=== PATIENT | female | born 1970 | race Hispanic/Latino ===

== ENCOUNTER 2018-03-10 11:47 | Observation (INO) | payer BC ==
[2018-03-10 11:55] VITALS: BMI 38.8
[2018-03-10 12:48] LABS: BASO # 0.02 K/mm3 (0.0-2.0); BASO % 0.3 % (0.0-3.0); EOS # 0.1 (0.0-0.7); EOS % 1.7 % (1.5-5.0); GRAN # 5.2 (1.4-6.5); GRAN % 69.2 % (50.0-68.0); LYMPH # 1.6 (1.2-3.4); LYMPH % 21.6 % (22.0-35.0); MEAN CELL VOLUME 63.7 fl (80.0-105.0); MEAN CORPUSCULAR HEMOGLOBIN 17.9 pg (25.0-35.0); MEAN CORPUSCULAR HGB CONC 28.1 g/dl (31.0-37.0); MEAN PLATELET VOLUME 9.8 fl (7.0-11.0); MONO # 0.5 (0.1-0.6); MONO % 7.2 % (1.0-6.0); RBC 3.58 10^6/uL (3.5-6.1); RED CELL DISTRIBUTION WIDTH 17.6 % (11.5-14.5); WHITE BLOOD COUNT 7.5 10^3/uL (4.5-11.0)
[2018-03-10 12:50] LABS: ALB/GLOB RATIO 1.4 (1.1-1.8); ALBUMIN 4.1 g/dL (3.0-4.8); ALT/SGPT 21 U/L (7-56); AST/SGOT 17 U/L (14-36); BLOOD UREA NITROGEN 9 mg/dL (7-21); CALCIUM 9.2 mg/dL (8.4-10.5); GFR NON-AFRICAN AMERICAN > 60
[2018-03-10 12:54] LABS: IRON 10 ug/dL (45-180)
[2018-03-10 12:56] LABS: HEMOGLOBIN 6.4 g/dL (12.0-16.0)
[2018-03-10 12:58] LABS: INR 1.11; PROTHROMBIN TIME 12.5 SECONDS (9.4-12.5)
[2018-03-10 13:03] LABS: % IRON SATURATION 2 % (20-55); TOTAL IRON BINDING CAPACITY 477 ug/dL (265-497)
--- NOTE | 2018-03-10 14:52 | CP.PCM.HP ---
<Adelia Domingo - Last Filed: 03/10/18 14:54> History of Present Illness - History of Present Illness History of Present Illness: 47yo female PMHx uterine fibroids, LYLE, low vitamin D was sent in to ER from Dr. Arita office for low H&H. Patient reports she was receiving her IV venofer transfusion today and was found to have a Hgb ~6 and was told to go to the ER. Patient had a similar episode in January 2018 where she was admitted overnight at [facility] as she was found to have a Hgb of ~5. Patient was transfused 2U PRBC during prior hospitalization. She had noticed she was starting to have heavy menstrual bleeding since late Dec 2017 when she would be bleeding continuously and would go through multiple tampons and pads throughout the day. Since then she has been started on Provera by her [facility] and although she continues to have menstrual bleeding she changes her pads 3-4 times/day. Over the past week patient was noticing she was lightheaded and having increasing SOB on exertion with palpitations. She denied any chest pain. On complete ROS patient denied fever, chills, headaches, cough, dyspnea at rest, abdominal pain, nausea, vomiting, diarrhea, constipation, blood in her stool, melena, hematuria, dysuria, numbness/tingling in her extremities, focal weakness. She did admit to generalized weakness and tiredness. Patient denied any recent sick contacts. PMHx: uterine fibroids, LYLE, low vitamin D POBGynHx: ; patient LMP early December and she has been having menstrual bleeding since; periods used to be every 28 days; patient was last on OCPs as a teenager and has never had an IUD. Last pap smear was a couple months ago and has never been abnormal. PSurgHx: tubal ligation 13 years ago; 2 c-sections [13 years ago and 16 years ago] PHospitalization: [facility] on Feb 022017 for symptomatic anemia wit Hgb ~5 Meds: Weekly vitamin D, Provera, Iron infusions ALL: NKDA FamHx: noncontributory PMD: [facility]c: Juan J [facility]: [employer] [last seen February 22 2018] Present on Admission - Present on Admission Any Indicators Present on Admission: No Review of Systems - Review of Systems All systems: reviewed and no additional remarkable complaints except Review of Systems: as per HPI Past Patient History - Infectious Disease Hx of Infectious Diseases: None - Past Social History Smoking Status: Unknown If Ever Smoked - CARDIAC Hx Cardiac Disorders: No - PULMONARY Hx Respiratory Disorders: No - PSYCHIATRIC Hx Substance Use: No - ANESTHESIA Hx Anesthesia: No Meds Allergies/Adverse Reactions: Allergies Allergy/AdvReac Type Severity Reaction Status Date / Time No Known Allergies Allergy Verified 03/11/18 14:13 Physical Exam - Constitutional Appears: Non-toxic, No Acute Distress - Head Exam Head Exam: ATRAUMATIC, NORMAL INSPECTION, NORMOCEPHALIC - Eye Exam Eye Exam: EOMI, Normal appearance, PERRL. absent: Conjunctival injection, Scler al icterus - ENT Exam ENT Exam: Mucous Membranes Moist - Neck Exam Neck exam: Positive for: Full Rom, Normal Inspection - Respiratory Exam Respiratory Exam: Clear to Auscultation Bilateral, NORMAL BREATHING PATTERN. absent: Accessory Muscle Use, Rales, Rhonchi, Wheezes, Respiratory Distress - Cardiovascular Exam Cardiovascular Exam: Tachycardia, +S1, +S2 - GI/Abdominal Exam GI & Abdominal Exam: Normal Bowel Sounds, Soft. absent: Firm, Guarding, Rigid, Tenderness - Extremities Exam Extremities exam: Positive for: normal inspection, pedal pulses present. Nega tive for: calf tenderness, pedal edema - Back Exam Back exam: NORMAL INSPECTION. absent: rash noted - Neurological Exam Neurological exam: Alert, CN II-XII Intact, Normal Gait, Oriented x3 - Psychiatric Exam Psychiatric exam: Normal Affect, Normal Mood - Skin Skin Exam: Dry, Intact, Normal Color, Warm Results - Vital Signs Recent Vital Signs: Last Vital Signs Temp 98.2 F 03/10/18 11:54 Pulse 94 H 03/10/18 14:00 Resp 18 03/10/18 14:00 BP 145/75 03/10/18 14:00 Pulse Ox 100 03/10/18 14:00 - Labs Result Diagrams: 03/10/18 12:23 03/10/18 12:23 Labs: Laboratory Results - last 24 hr 03/10/18 03/10/18 03/10/18 12:23 12:23 12:23 WBC 7.5 RBC 3.58 Hgb 6.4 L* Hct 22.8 L MCV 63.7 L MCH 17.9 L MCHC 28.1 L RDW 17.6 H Plt Count 310 MPV 9.8 Gran % 69.2 H Lymph % (Auto) 21.6 L Louisa % (Auto) 7.2 H Eos % (Auto) 1.7 Baso % (Auto) 0.3 Gran # 5.20 Lymph # (Auto) 1.6 Louisa # (Auto) 0.5 Eos # (Auto) 0.1 Baso # (Auto) 0.02 PT 12.5 INR 1.11 APTT 31.0 Sodium 139 Potassium 4.2 Chloride 107 Carbon Dioxide 24 Anion Gap 12 BUN 9 Creatinine 0.7 Est GFR ( Amer) > 60 Est GFR (Non-Af Amer) > 60 Random Glucose 100 Calcium 9.2 Iron TIBC % Saturation Total Bilirubin 0.3 AST 17 ALT 21 Alkaline Phosphatase 67 Total Protein 7.0 Albumin 4.1 Globulin 2.9 Albumin/Globulin Ratio 1.4 Blood Type Blood Type Confirm Antibody Screen Crossmatch BBK History Checked 03/10/18 03/10/18 03/10/18 12:23 12:23 13:26 WBC RBC Hgb Hct MCV MCH MCHC RDW Plt Count MPV Gran % Lymph % (Auto) Louisa % (Auto) Eos % (Auto) Baso % (Auto) Gran # Lymph # (Auto) Louisa # (Auto) Eos # (Auto) Baso # (Auto) PT INR APTT Sodium Potassium Chloride Carbon Dioxide Anion Gap BUN Creatinine Est GFR ( Amer) Est GFR (Non-Af Amer) Random Glucose Calcium Iron 10 L TIBC 477 % Saturation 2 L Total Bilirubin AST ALT Alkaline Phosphatase Total Protein Albumin Globulin Albumin/Globulin Ratio Blood Type O POSITIVE Blood Type Confirm O POSITIVE Antibody Screen Negative Crossmatch See Detail BBK History Checked No verified bt Assessment & Plan - Assessment and Plan (Free Text) Assessment: 1. Symptomatic Anemia 2. Dysfunctional Uterine Bleeding 3. Iron deficiency anemia requiring IV venofer 4. Uterine fibroids 5. Low vitamin D Plan: Patient's vitals and blood work noted in chart. In short, patient admitted to med/surg for Hgb 6.4 which was found on blood work while she was at Dr. Arita's clinic receiving a dose of IV venofer. Will get an EKG in light of dyspnea on exertion and palpitations- will follow up. Patient's iron studies reveal iron deficiency anemia. Patient has received 2U PRBC on past admission at [facility] and has not had a bad reaction. She consented to being transfused 2U PRBC during this admission and being monitored overnight. Patient sees [facility] as outpatient for dysfunctional uterine bleeding likely secondary to uterine fibroids. Patient is scheduled to have a procedure with [facility] in March 2018. Patient takes cholecalciferol weekly for low vitamin D which she did this morning. Patient to have a follow up CBC at midnight after being transfused 2U PRBC to monitor appropriate response. DVT ppx in place and patient has regular diet on board. Appreciates reccs of heme-onc. Patient will be monitored closely overnight. Will discuss with Dr. Brenda Domingo PGY3 <Clement Gutierrez S - Last Filed: 03/11/18 19:03> Results - Vital Signs Recent Vital Signs: Last Vital Signs Temp 100 F H 03/11/18 06:00 Pulse 80 03/11/18 06:00 Resp 18 03/11/18 06:00 BP 132/79 03/11/18 06:00 Pulse Ox 97 03/11/18 06:00 - Labs Result Diagrams: 03/11/18 07:40 03/11/18 07:40 Labs: Laboratory Results - last 24 hr 03/10/18 03/11/18 03/11/18 12:23 07:40 07:40 WBC 5.8 D RBC 4.11 Hgb 8.1 L Hct 27.6 L MCV 67.2 L D MCH 19.7 L MCHC 29.3 L RDW 20.0 H Plt Count 268 MPV 10.2 Sodium 139 Potassium 4.3 Chloride 107 Carbon Dioxide 26 Anion Gap 10 BUN 10 Creatinine 0.8 Est GFR ( Amer) > 60 Est GFR (Non-Af Amer) > 60 Random Glucose 86 Calcium 9.2 Phosphorus 3.5 Magnesium 2.2 Total Bilirubin 0.6 AST 20 ALT 24 Alkaline Phosphatase 67 Total Protein 6.7 Albumin 3.9 Globulin 2.9 Albumin/Globulin Ratio 1.3 Blood Type O POSITIVE Antibody Screen Negative Crossmatch See Detail BBK History Checked No verified bt Assessment & Plan - Assessment and Plan (Free Text) Assessment: Pt seen and examined by me. I have reviewed the note of the medical records clerk and I agree with it. I have discussed the assessment and plan with the resident. I have reviewed the medications and the last labs.Pt with symptomatic iron def anemia. She was given 2 units of PRBC. She was given IV Iron and has plans for surgery next month for her fibroids. She is seeing Heme for Iron infusions. She feels well and is asking to go home. F/U PMD x1-2 weeks. Plan: Pt seen and examined by me. I have reviewed the note of the medical records clerk and I agree with it. I have discussed the assessment and plan with the resident. I have reviewed the medications and the last labs.
--- NOTE | 2018-03-10 16:13 | CP.PCM.CON ---
History of Present Illness - History of Present Illness History of Present Illness: PGY-2 heme/onc consult note for Dr Arita 47yo female PMHx uterine fibroids, LYLE, low vitamin D was sent in to ER from Dr. Arita office for low H&H. Patient reports she was receiving her IV venofer transfusion today and was found to have a Hgb ~6 and was told to go to the ER. Patient had a similar episode in January 2018 where she was admitted overnight at [facility] as she was found to have a Hgb of ~5. Patient was transfused 2U PRBC during prior hospitalization and then discharged home. She had noticed she was starting to have heavy menstrual bleeding since late Dec 2017 when she would be bleeding continuously and would go through multiple tampons and pads throughout the day. Since then she has been started on Provera by her [employer] - she stated this medication has reduced the flow however she continues to have menstrual bleeding she changes her pads 3-4 times/day. Over the past week patient was noticing she was lightheaded and having increasing SOB on exertion with palpitations. She denied any chest pain. On complete ROS patient denied fever, chills, headaches, cough, dyspnea at rest, abdominal pain, nausea, vomiting, diarrhea, constipation, blood in her stool, melena. She did admit to generalized weakness and tiredness. She denied taking any blood thinners. PMHx: uterine fibroids, LYLE, low vitamin D POBGynHx: ; patient LMP early December and she has been having menstrual bleeding since; periods used to be every 28 days; patient was last on OCPs as a teenager and has never had an IUD. Last pap smear was a couple months ago and has never been abnormal. PSurgHx: tubal ligation 13 years ago; 2 c-sections [13 years ago and 16 years ago] PHospitalization: [facility] [place] for symptomatic anemia wit Hgb ~5 Meds: Weekly vitamin D, Provera, Iron infusions ALL: NKDA FamHx: noncontributory PMD: [facility]: Juan J [employer]: [facility] [employer] [last seen February 22 2018] Review of Systems - Review of Systems All systems: reviewed and no additional remarkable complaints except (as stated in HPI) Past Patient History - Infectious Disease Hx of Infectious Diseases: None - Past Social History Smoking Status: Unknown If Ever Smoked - CARDIAC Hx Cardiac Disorders: No - PULMONARY Hx Respiratory Disorders: No - PSYCHIATRIC Hx Substance Use: No - ANESTHESIA Hx Anesthesia: No Meds Allergies/Adverse Reactions: Allergies Allergy/AdvReac Type Severity Reaction Status Date / Time No Known Allergies Allergy Verified 03/10/18 15:48 Physical Exam - Additional Findings Additional findings: - Constitutional Appears: Non-toxic, No Acute Distress - Head Exam Head Exam: ATRAUMATIC, NORMAL INSPECTION, NORMOCEPHALIC - Eye Exam Eye Exam: EOMI, Normal appearance, PERRL. absent: Conjunctival injection, Scleral icterus - ENT Exam ENT Exam: Mucous Membranes Moist - Neck Exam Neck exam: Positive for: Full Rom, Normal Inspection - Respiratory Exam Respiratory Exam: Clear to Auscultation Bilateral, NORMAL BREATHING PATTERN. absent: Accessory Muscle Use, Rales, Rhonchi, Wheezes, Respiratory Distress - Cardiovascular Exam Cardiovascular Exam: Tachycardia, +S1, +S2 - GI/Abdominal Exam GI & Abdominal Exam: Normal Bowel Sounds, Soft. absent: Firm, Guarding, Rigid, Tenderness - Extremities Exam Extremities exam: Positive for: normal inspection, pedal pulses present. Negative for: calf tenderness, pedal edema - Back Exam Back exam: NORMAL INSPECTION. absent: rash noted - Neurological Exam Neurological exam: Alert, CN II-XII Intact, Normal Gait, Oriented x3 - Psychiatric Exam Psychiatric exam: Normal Affect, Normal Mood - Skin Skin Exam: Dry, Intact, Normal Color, Warm Results - Vital Signs Recent Vital Signs: Last Vital Signs Temp 98 F 03/10/18 15:19 Pulse 93 H 03/10/18 15:19 Resp 16 03/10/18 15:19 BP 142/86 03/10/18 15:19 Pulse Ox 100 03/10/18 14:00 - Labs Result Diagrams: 03/10/18 12:23 03/10/18 12:23 Labs: Laboratory Results - last 24 hr 03/10/18 03/10/18 03/10/18 12:23 12:23 12:23 WBC 7.5 RBC 3.58 Hgb 6.4 L* Hct 22.8 L MCV 63.7 L MCH 17.9 L MCHC 28.1 L RDW 17.6 H Plt Count 310 MPV 9.8 Gran % 69.2 H Lymph % (Auto) 21.6 L Kay % (Auto) 7.2 H Eos % (Auto) 1.7 Baso % (Auto) 0.3 Gran # 5.20 Lymph # (Auto) 1.6 Kay # (Auto) 0.5 Eos # (Auto) 0.1 Baso # (Auto) 0.02 PT 12.5 INR 1.11 APTT 31.0 Sodium 139 Potassium 4.2 Chloride 107 Carbon Dioxide 24 Anion Gap 12 BUN 9 Creatinine 0.7 Est GFR ( Amer) > 60 Est GFR (Non-Af Amer) > 60 Random Glucose 100 Calcium 9.2 Iron TIBC % Saturation Total Bilirubin 0.3 AST 17 ALT 21 Alkaline Phosphatase 67 Total Protein 7.0 Albumin 4.1 Globulin 2.9 Albumin/Globulin Ratio 1.4 Blood Type Blood Type Confirm Antibody Screen Crossmatch BBK History Checked 03/10/18 03/10/18 03/10/18 12:23 12:23 13:26 WBC RBC Hgb Hct MCV MCH MCHC RDW Plt Count MPV Gran % Lymph % (Auto) Kay % (Auto) Eos % (Auto) Baso % (Auto) Gran # Lymph # (Auto) Kay # (Auto) Eos # (Auto) Baso # (Auto) PT INR APTT Sodium Potassium Chloride Carbon Dioxide Anion Gap BUN Creatinine Est GFR ( Amer) Est GFR (Non-Af Amer) Random Glucose Calcium Iron 10 L TIBC 477 % Saturation 2 L Total Bilirubin AST ALT Alkaline Phosphatase Total Protein Albumin Globulin Albumin/Globulin Ratio Blood Type O POSITIVE Blood Type Confirm O POSITIVE Antibody Screen Negative Crossmatch See Detail BBK History Checked No verified bt Assessment & Plan - Assessment and Plan (Free Text) Plan: 47yo female PMHx uterine fibroids, LYLE, low vitamin D was sent in to ER from Dr. Arita office for low H&H: Symptomatic Anemia -H/H on admission: 6.4/22.8 with low MCV and high RDW -likely 2/2 to menstrual blood loss; had a recent admission at [facility] [place] issue and was transfused 2u pRBCs at that time w/o complications -fibroids confirmed via prior imaging - hysterectomy planned for late March -iron 10, tibc 477, %sat 2, ferritin pending -ekg showed questionable right axis deviation otherwise normal -administer 2u pRBCs with repeat cbc afterwards to check response Seen and discussed with Dr Arita
--- NOTE | 2018-03-10 16:34 | ED PDOC ---
Arrival/HPI - General Chief Complaint: Abnormal Labs Time Seen by Provider: 03/10/18 11:51 Historian: Patient - History of Present Illness Narrative History of Present Illness (Text): 03/10/18 16:37 A 47 year old female, whose past medical history includes anemia secondary to uterine fibroid (scheduled to be removed next month), sent to the emergency department by cloth bleaching supervisor due to low hemoglobin level. Patient had blood work performed today, and found hemoglobin to be 6.0. Patient reports experiencing generalized weakness. Patient denies any fever, cough, vomiting, or any other complaints at this time. In regards to uterine fibroid, patient currently taking medication for it and will have it removed next month. Patient scheduled to follow-up with her [employer], and currently denies any continuation of vaginal bleeding. PMD: Dr. Carroll Past Medical History - Provider Review Nursing Documentation Reviewed: Yes - Infectious Disease Hx of Infectious Diseases: None - Reproductive Menopause: No - Cardiac Hx Cardiac Disorders: No - Pulmonary Hx Respiratory Disorders: No - Psychiatric Hx Substance Use: No - Anesthesia Hx Anesthesia: No Family/Social History - Physician Review Nursing Documentation Reviewed: Yes Family/Social History: No Known Family HX Smoking Status: Unknown If Ever Smoked Hx Alcohol Use: No Hx Substance Use: No Allergies/Home Meds Allergies/Adverse Reactions: Allergies No Known Allergies Allergy (Verified 03/10/18 15:48) Home Medications: Home Meds Medication Instructions Recorded Confirmed Cholecalciferol [Vitamin D] 50,000 iu PO QWK 03/10/18 03/10/18 Medroxyprogesterone Acetate 10 mg PO DAILY 03/10/18 03/10/18 [Provera] Review of Systems - Physician Review All systems were reviewed & negative as marked: Yes - Review of Systems Constitutional: Other (generalized weakness). absent: Fevers Respiratory: absent: Cough Gastrointestinal: absent: Vomiting Genitourinary Female: absent: Vaginal Bleeding Physical Exam Vital Signs Reviewed: Yes Vital Signs Temp Pulse Resp BP Pulse Ox 03/10/18 14:00 94 H 18 145/75 100 03/10/18 11:54 98.2 F 93 H 18 149/94 H 99 Temperature: Afebrile Blood Pressure: Normal Pulse: Regular Respiratory Rate: Normal Appearance: Positive for: Well-Appearing, Non-Toxic, Comfortable Pain Distress: None Mental Status: Positive for: Alert and Oriented X 3 - Systems Exam Head: Present: Atraumatic, Normocephalic Pupils: Present: PERRL Extroacular Muscles: Present: EOMI Conjunctiva: Present: Other (pale) Mouth: Present: Moist Mucous Membranes Neck: Present: Normal Range of Motion Respiratory/Chest: Present: Clear to Auscultation, Good Air Exchange. No: Respiratory Distress, Accessory Muscle Use Cardiovascular: Present: Regular Rate and Rhythm, Normal S1, S2. No: Murmurs Abdomen: No: Tenderness, Distention, Peritoneal Signs Back: Present: Normal Inspection Upper Extremity: Present: Normal Inspection. No: Cyanosis, Edema Lower Extremity: Present: Normal Inspection. No: Edema Neurological: Present: GCS=15, CN II-XII Intact, Speech Normal Skin: Present: Warm, Dry, Normal Color. No: Rashes Psychiatric: Present: Alert, Oriented x 3, Normal Insight, Normal Concentration Medical Decision Making ED Course and Treatment: 03/10/18 16:39 Impression: 47 year old female sent in by cloth bleaching supervisor for low hemoglobin level. Plan: -- Reassess and disposition Progress Notes: 03/10/18 16:[address] Vick, who accepts patient into his service. - Lab Interpretations Lab Results: PT 12.5 SECONDS (9.4-12.5) 03/10/18 12:23 INR 1.11 03/10/18 12:23 APTT 31.0 Seconds (26.9-38.3) 03/10/18 12:23 Total Bilirubin 0.3 mg/dL (0.2-1.3) 03/10/18 12:23 AST 17 U/L (14-36) 03/10/18 12:23 ALT 21 U/L (7-56) 03/10/18 12:23 Alkaline Phosphatase 67 U/L (38-126) 03/10/18 12:23 Total Protein 7.0 g/dL (5.8-8.3) 03/10/18 12:23 Albumin 4.1 g/dL (3.0-4.8) 03/10/18 12:23 Globulin 2.9 gm/dL 03/10/18 12:23 Albumin/Globulin Ratio 1.4 (1.1-1.8) 03/10/18 12:23 - Scribe Statement The provider has reviewed the documentation as recorded by the Scribe Hanan Dabdi Provider Scribe Attestation: All medical record entries made by the Lillyibjeremi were at my direction and personally dictated by me. I have reviewed the chart and agree that the record accurately reflects my personal performance of the history, physical exam, medical decision making, and the department course for this patient. I have also personally directed, reviewed, and agree with the discharge instructions and disposition. Disposition/Present on Arrival - Present on Arrival Any Indicators Present on Arrival: No History of DVT/PE: No History of Uncontrolled Diabetes: No Urinary Catheter: No History of Decub. Ulcer: No History Surgical Site Infection Following: None - Disposition Have Diagnosis and Disposition been Completed?: Yes Diagnosis: Anemia Disposition: HOSPITALIZED Disposition Time: 12:50 Condition: FAIR
[2018-03-10 17:12] LABS: FERRITIN 3.3 ng/mL
[2018-03-10] MEDS ORDERED: Influenza Vaccine 60 mcg/0.5 mL SYR (4YR UP) IM ONE (20:23)
[2018-03-10] MEDS ORDERED: Pneumococcal 23-Valent Vaccine IM ONE (20:23)
[2018-03-10 22:27] VITALS: RESP 18
--- NOTE | 2018-03-11 00:31 | CARD ---
APPROVED REPORT Date of service: 03/10/2018 EKG Measurement Heart [id number] <Conclusion> Normal sinus rhythm Intraventricular conduction delay of RBBB type Borderline normal ECG
[2018-03-11 07:50] LABS: MEAN CELL VOLUME 67.2 fl (80.0-105.0); MEAN CORPUSCULAR HEMOGLOBIN 19.7 pg (25.0-35.0); MEAN CORPUSCULAR HGB CONC 29.3 g/dl (31.0-37.0); MEAN PLATELET VOLUME 10.2 fl (7.0-11.0); RBC 4.11 10^6/uL (3.5-6.1); WHITE BLOOD COUNT 5.8 10^3/uL (4.5-11.0)
[2018-03-11 07:51] LABS: HEMOGLOBIN 8.1 g/dL (12.0-16.0)
[2018-03-11 08:01] VITALS: BP 132/79; PULSE 80; TEMP 100; O2SAT 97
--- NOTE | 2018-03-11 08:09 | CP.PCM.PN ---
Subjective - Date & Time of Evaluation Date of Evaluation: 03/11/18 Time of Evaluation: 08:05 - Subjective Subjective: PGY-2 heme/onc progress note for Dr Arita No acute events noted overnight. Patient tolerated transfusion well. Denied pain, cp, sob, weakness, f/c, n/v. Objective - Vital Signs/Intake and Output Vital Signs (last 24 hours): Temp Pulse Resp BP Pulse Ox 100 F H 80 18 132/79 97 03/11/18 06:00 03/11/18 06:00 03/11/18 06:00 03/11/18 06:00 03/11/18 06:00 Intake and Output: 03/11/18 03/11/18 06:59 18:59 Intake Total 505 Balance 505 - Medications Medications: Current Medications Medroxyprogesterone Acetate (Provera) 10 mg PO DAILY PRACHI - Labs Labs: 03/11/18 07:40 03/10/18 12:23 PT 12.5 SECONDS (9.4-12.5) 03/10/18 12:23 INR 1.11 03/10/18 12:23 APTT 31.0 Seconds (26.9-38.3) 03/10/18 12:23 - Additional Findings Additional findings: - Constitutional Appears: Non-toxic, No Acute Distress - Head Exam Head Exam: ATRAUMATIC, NORMAL INSPECTION, NORMOCEPHALIC - Eye Exam Eye Exam: EOMI, Normal appearance, PERRL. absent: Conjunctival injection, Scleral icterus - ENT Exam ENT Exam: Mucous Membranes Moist - Neck Exam Neck exam: Positive for: Full Rom, Normal Inspection - Respiratory Exam Respiratory Exam: Clear to Auscultation Bilateral, NORMAL BREATHING PATTERN. absent: Accessory Muscle Use, Rales, Rhonchi, Wheezes, Respiratory Distress - Cardiovascular Exam Cardiovascular Exam: Pr5clyq Rate, +S1, +S2 - GI/Abdominal Exam GI & Abdominal Exam: Normal Bowel Sounds, Soft. absent: Firm, Guarding, Rigid, Tenderness - Extremities Exam Extremities exam: Positive for: normal inspection, pedal pulses present. Negative for: calf tenderness, pedal edema - Back Exam Back exam: NORMAL INSPECTION. absent: rash noted - Neurological Exam Neurological exam: Alert, CN II-XII Intact, Normal Gait, Oriented x3 - Psychiatric Exam Psychiatric exam: Normal Affect, Normal Mood - Skin Skin Exam: Dry, Intact, Normal Color, Warm Assessment and Plan - Assessment and Plan (Free Text) Plan: 47yo female PMHx uterine fibroids, LYLE, low vitamin D was sent in to ER from Dr. Arita office for low H&H: Symptomatic Anemia -H/H on admission: 6.4/22.8 with low MCV and high RDW -likely 2/2 to menstrual blood loss; had a recent admission at [facility] for same issue and was transfused 2u pRBCs at that time w/o complications -fibroids confirmed via prior imaging - hysterectomy planned for late March -iron 10, tibc 477, %sat 2, ferritin pending -ekg showed questionable right axis deviation otherwise normal -administered 2u pRBCs with response in Hgb 6.4 -> 8.1 Seen and discussed with Dr Arita
[2018-03-11 08:11] LABS: ALB/GLOB RATIO 1.3 (1.1-1.8); ALBUMIN 3.9 g/dL (3.0-4.8); ALT/SGPT 24 U/L (7-56); AST/SGOT 20 U/L (14-36); BLOOD UREA NITROGEN 10 mg/dL (7-21); CALCIUM 9.2 mg/dL (8.4-10.5); GFR NON-AFRICAN AMERICAN > 60
--- NOTE | 2018-03-11 08:27 | CP.PCM.DIS ---
<Adelia Domingo - Last Filed: 03/11/18 10:48> Provider - Provider Date of Admission: 03/10/18 13:12 Attending physician: Clement Gutierrez MD Primary care physician: Vaishali Carroll DO Consults: 03/10/18 13:36 Hematology Oncology Consult Routine Comment: Consulting Provider: Sulaiman Nuñez Consulting Physician: Sulaiman Nuñez Reason for Consult: anemia 03/10/18 20:23 Inpatient [employer] Me[employer] Referral Routine Comment: Physician Instructions: Reason For Exam: EVALUATION Transition In Care/Readmission Reduction Routine Comment: Physician Instructions: Reason For Exam: EVALUATION Time Spent in preparation of Discharge (in minutes): 35 Hospital Course - Lab Results Lab Results: Most Recent Lab Values WBC 5.8 10^3/uL (4.5-11.0) D 03/11/18 07:40 RBC 4.11 10^6/uL (3.5-6.1) 03/11/18 07:40 Hgb 8.1 g/dL (12.0-16.0) L 03/11/18 07:40 Hct 27.6 % (36.0-48.0) L 03/11/18 07:40 MCV 67.2 fl (80.0-105.0) L D 03/11/18 07:40 MCH 19.7 pg (25.0-35.0) L 03/11/18 07:40 MCHC 29.3 g/dl (31.0-37.0) L 03/11/18 07:40 RDW 20.0 % (11.5-14.5) H 03/11/18 07:40 Plt Count 268 10^3/uL (120.0-450.0) 03/11/18 07:40 MPV 10.2 fl (7.0-11.0) 03/11/18 07:40 Gran % 69.2 % (50.0-68.0) H 03/10/18 12:23 Lymph % (Auto) 21.6 % (22.0-35.0) L 03/10/18 12:23 Edgar % (Auto) 7.2 % (1.0-6.0) H 03/10/18 12:23 Eos % (Auto) 1.7 % (1.5-5.0) 03/10/18 12:23 Baso % (Auto) 0.3 % (0.0-3.0) 03/10/18 12:23 Gran # 5.20 (1.4-6.5) 03/10/18 12:23 Lymph # (Auto) 1.6 (1.2-3.4) 03/10/18 12:23 Edgar # (Auto) 0.5 (0.1-0.6) 03/10/18 12:23 Eos # (Auto) 0.1 (0.0-0.7) 03/10/18 12:23 Baso # (Auto) 0.02 K/mm3 (0.0-2.0) 03/10/18 12:23 PT 12.5 SECONDS (9.4-12.5) 03/10/18 12:23 INR 1.11 03/10/18 12:23 APTT 31.0 Seconds (26.9-38.3) 03/10/18 12:23 Sodium 139 mmol/L (132-148) 03/11/18 07:40 Potassium 4.2 mmol/L (3.6-5.0) 03/10/18 12:23 Chloride 107 mmol/L (98-107) 03/11/18 07:40 Carbon Dioxide 26 mmol/L (21-33) 03/11/18 07:40 Anion Gap 12 (10-20) 03/10/18 12:23 BUN 10 mg/dL (7-21) 03/11/18 07:40 Creatinine 0.8 mg/dl (0.7-1.2) 03/11/18 07:40 Est GFR ( Amer) > 60 03/11/18 07:40 Est GFR (Non-Af Amer) > 60 03/11/18 07:40 Random Glucose 86 mg/dL (70-110) 03/11/18 07:40 Calcium 9.2 mg/dL (8.4-10.5) 03/11/18 07:40 Phosphorus 3.5 mg/dL (2.5-4.5) 03/11/18 07:40 Magnesium 2.2 mg/dL (1.7-2.2) 03/11/18 07:40 Iron 10 ug/dL (45-180) L 03/10/18 12:23 TIBC 477 ug/dL (265-497) 03/10/18 12:23 % Saturation 2 % (20-55) L 03/10/18 12:23 Ferritin 3.3 ng/mL 03/10/18 12:23 Total Bilirubin 0.6 mg/dL (0.2-1.3) 03/11/18 07:40 AST 20 U/L (14-36) 03/11/18 07:40 ALT 24 U/L (7-56) 03/11/18 07:40 Alkaline Phosphatase 67 U/L (38-126) 03/11/18 07:40 Total Protein 6.7 g/dL (5.8-8.3) 03/11/18 07:40 Albumin 3.9 g/dL (3.0-4.8) 03/11/18 07:40 Globulin 2.9 gm/dL 03/11/18 07:40 Albumin/Globulin Ratio 1.3 (1.1-1.8) 03/11/18 07:40 Blood Type O POSITIVE 03/10/18 12:23 Blood Type Confirm O POSITIVE 03/10/18 13:26 Antibody Screen Negative 03/10/18 12:23 Crossmatch See Detail 03/10/18 12:23 BBK History Checked No verified bt 03/10/18 12:23 - Hospital Course Hospital Course: Upon Admission As per HPI: "47yo female PMHx uterine fibroids, LYLE, low vitamin D was sent in to ER from Dr. Arita office for low H&H. Patient reports she was receiving her IV venofer transfusion today and was found to have a Hgb ~6 and was told to go to the ER. Patient had a similar episode in January 2018 where she [place] [facility] [place] was found to have a Hgb of ~5. Patient was transfused 2U PRBC during prior hospitalization. She had noticed she was starting to have heavy menstrual bleeding since late Dec 2017 when she would be bleeding continuously and would go through multiple tampons and pads throughout the day. Since then she has been started on Provera by her [facility] and although she continues to have menstrual bleeding she changes her pads 3-4 times/day. Over the past week patient was noticing she was lightheaded and having increasing SOB on exertion with palpitations. She denied any chest pain. On complete ROS patient denied fever, chills, headaches, cough, dyspnea at rest, abdominal pain, nausea, vomiting, diarrhea, constipation, blood in her stool, melena, hematuria, dysuria, numbness/tingling in her extremities, focal weakness. She did admit to generalized weakness and tiredness. Patient denied any recent sick contacts." Hospital Course Patient admitted to med/surg for Hgb 6.4. EKG was done in light of dyspnea on exertion and palpitations which was NSR.Patient's iron studies reveal iron deficiency anemia. Patient consented to being transfused 2U PRBC and being monitored overnight. Hgb responded appropriately with Hgb 8.1. Patient was given home dose of 10mg Provera and an infusion of 200mg iron sucrose. Patient clinically and symptomatically improved the next day and was deemed medically stable for discharge home with outpatient follow up. Patient scheduled to have a procedure with [facility] in March 2018. Discharge Instructions "You are being discharged from [facility]. Upon discharge please continue taking Provera 10mg 1 tab daily as prescribed. You have been given a refill for 14 days. Please also continue taking your weekly Vitamin D. Additionally please begin taking the following medications as prescribed: -Ferrous sulfate 325mg 1 tab by mouth twice a day Disp#60 -Colace 100mg 1 tab by mouth twice a day Disp#60 -Miralax 17gm 1 packet daily as needed for constipation Disp#30 Please follow up with your PMD Dr. Carroll in 7 days. Please follow up with your Side [facility] Dr. Arita within 10 days. Please also follow up with you [facility] within 10 days. If symptoms return please visit your nearest Emergency Room." Instructions discussed in detail with patient who understands and agrees Please note this is a discharge summary. For full hospital course please refer to EMR. Discharge Exam - Additional Findings Additional findings: - Constitutional Appears: Non-toxic, No Acute Distress - Head Exam Head Exam: ATRAUMATIC, NORMAL INSPECTION, NORMOCEPHALIC - Eye Exam Eye Exam: EOMI, Normal appearance, PERRL. absent: Conjunctival injection, Scleral icterus - ENT Exam ENT Exam: Mucous Membranes Moist - Neck Exam Neck exam: Positive for: Full Rom, Normal Inspection - Respiratory Exam Respiratory Exam: Clear to Auscultation Bilateral, NORMAL BREATHING PATTERN. absent: Accessory Muscle Use, Rales, Rhonchi, Wheezes, Respiratory Distress - Cardiovascular Exam Cardiovascular Exam: Tachycardia, +S1, +S2 - GI/Abdominal Exam GI & Abdominal Exam: Normal Bowel Sounds, Soft. absent: Firm, Guarding, Rigid, Tenderness - Extremities Exam Extremities exam: Positive for: normal inspection, pedal pulses present. Negative for: calf tenderness, pedal edema - Back Exam Back exam: NORMAL INSPECTION. absent: rash noted - Neurological Exam Neurological exam: Alert, CN II-XII Intact, Normal Gait, Oriented x3 - Psychiatric Exam Psychiatric exam: Normal Affect, Normal Mood - Skin Skin Exam: Dry, Intact, Normal Color, Warm Discharge Plan - Discharge Medications Prescriptions: Docusate [Colace] 100 mg PO BID #60 cap RX: Ferrous Sulfate 325 mg PO BID #60 tablet Polyethylene Glycol 3350 [Miralax] 17 gm PO DAILY PRN #30 ml PRN Reason: Constipation RX: Medroxyprogesterone Acetate [Provera] 10 mg PO DAILY #14 tablet - Follow Up Plan Condition: FAIR Disposition: HOME/ ROUTINE Instructions: Anemia Caused by Low Iron, Adult (DC), Flu Vaccine Additional Instructions: You are being discharged from [facility]. Upon discharge please continue taking Provera 10mg 1 tab daily as prescribed. You have been given a refill for 14 days. Please also continue taking your weekly Vitamin D. Additionally please begin taking the following medications as prescribed: -Ferrous sulfate 325mg 1 tab by mouth twice a day Disp#60 -Colace 100mg 1 tab by mouth twice a day Disp#60 -Miralax 17gm 1 packet daily as needed for constipation Disp#30 Please follow up with your PMD Dr. Carroll in 7 days. Please follow up with your Side Sta[facility] Dr. Arita within 10 days. Please also follow up with you [facility] within 10 days. If symptoms return please visit your nearest Emergency Room. Referrals: Vaishali Carroll DO [Primary Care Provider] - Paul Arita MD [Staff Provider] - Mark Gibson MD [Medical Doctor] - <Clement Gutierrez - Last Filed: 03/11/18 18:57> Provider - Provider Date of Admission: 03/10/18 13:12 Attending physician: Clement Gutierrez MD Primary care physician: Vaishali Carroll DO Consults: 03/10/18 13:36 Hematology Oncology Consult Routine Comment: Consulting Provider: Sulaiman Nuñez Consulting Physician: Sulaiman Nuñez Reason for Consult: anemia 03/10/18 20:23 Inpatient [employer] Me[employer] Referral Routine Comment: Physician Instructions: Reason For Exam: EVALUATION Transition In Care/Readmission Reduction Routine Comment: Physician Instructions: Reason For Exam: EVALUATION Hospital Course - Lab Results Lab Results: Most Recent Lab Values WBC 5.8 10^3/uL (4.5-11.0) D 03/11/18 07:40 RBC 4.11 10^6/uL (3.5-6.1) 03/11/18 07:40 Hgb 8.1 g/dL (12.0-16.0) L 03/11/18 07:40 Hct 27.6 % (36.0-48.0) L 03/11/18 07:40 MCV 67.2 fl (80.0-105.0) L D 03/11/18 07:40 MCH 19.7 pg (25.0-35.0) L 03/11/18 07:40 MCHC 29.3 g/dl (31.0-37.0) L 03/11/18 07:40 RDW 20.0 % (11.5-14.5) H 03/11/18 07:40 Plt Count 268 10^3/uL (120.0-450.0) 03/11/18 07:40 MPV 10.2 fl (7.0-11.0) 03/11/18 07:40 Gran % 69.2 % (50.0-68.0) H 03/10/18 12:23 Lymph % (Auto) 21.6 % (22.0-35.0) L 03/10/18 12:23 Edgar % (Auto) 7.2 % (1.0-6.0) H 03/10/18 12:23 Eos % (Auto) 1.7 % (1.5-5.0) 03/10/18 12:23 Baso % (Auto) 0.3 % (0.0-3.0) 03/10/18 12:23 Gran # 5.20 (1.4-6.5) 03/10/18 12:23 Lymph # (Auto) 1.6 (1.2-3.4) 03/10/18 12:23 Edgar # (Auto) 0.5 (0.1-0.6) 03/10/18 12:23 Eos # (Auto) 0.1 (0.0-0.7) 03/10/18 12:23 Baso # (Auto) 0.02 K/mm3 (0.0-2.0) 03/10/18 12:23 PT 12.5 SECONDS (9.4-12.5) 03/10/18 12:23 INR 1.11 03/10/18 12:23 APTT 31.0 Seconds (26.9-38.3) 03/10/18 12:23 Sodium 139 mmol/L (132-148) 03/11/18 07:40 Potassium 4.3 mmol/L (3.6-5.0) 03/11/18 07:40 Chloride 107 mmol/L (98-107) 03/11/18 07:40 Carbon Dioxide 26 mmol/L (21-33) 03/11/18 07:40 Anion Gap 10 (10-20) 03/11/18 07:40 BUN 10 mg/dL (7-21) 03/11/18 07:40 Creatinine 0.8 mg/dl (0.7-1.2) 03/11/18 07:40 Est GFR ( Amer) > 60 03/11/18 07:40 Est GFR (Non-Af Amer) > 60 03/11/18 07:40 Random Glucose 86 mg/dL (70-110) 03/11/18 07:40 Calcium 9.2 mg/dL (8.4-10.5) 03/11/18 07:40 Phosphorus 3.5 mg/dL (2.5-4.5) 03/11/18 07:40 Magnesium 2.2 mg/dL (1.7-2.2) 03/11/18 07:40 Iron 10 ug/dL (45-180) L 03/10/18 12:23 TIBC 477 ug/dL (265-497) 03/10/18 12:23 % Saturation 2 % (20-55) L 03/10/18 12:23 Ferritin 3.3 ng/mL 03/10/18 12:23 Total Bilirubin 0.6 mg/dL (0.2-1.3) 03/11/18 07:40 AST 20 U/L (14-36) 03/11/18 07:40 ALT 24 U/L (7-56) 03/11/18 07:40 Alkaline Phosphatase 67 U/L (38-126) 03/11/18 07:40 Total Protein 6.7 g/dL (5.8-8.3) 03/11/18 07:40 Albumin 3.9 g/dL (3.0-4.8) 03/11/18 07:40 Globulin 2.9 gm/dL 03/11/18 07:40 Albumin/Globulin Ratio 1.3 (1.1-1.8) 03/11/18 07:40 Blood Type O POSITIVE 03/10/18 12:23 Blood Type Confirm O POSITIVE 03/10/18 13:26 Antibody Screen Negative 03/10/18 12:23 Crossmatch See Detail 03/10/18 12:23 BBK History Checked No verified bt 03/10/18 12:23 - Hospital Course Hospital Course: Pt seen and examined by me. I have reviewed the note of the medical staff credentialing coordinator and I agree with it. I have discussed the assessment and plan with the resident. I have reviewed the medications and the last labs. See H & P for further info.
== END 2018-03-11 13:18 | disposition home or self-care (01) ==
LOC: ED 11:47 → ERH 13:12 → 5RSO 14:31
PROVIDERS: ADMIT Internal Medicine Nephrology; ATTEND Internal Medicine Nephrology
DX: D50.9 Iron deficiency anemia, unspecified (principal); D25.9 Leiomyoma of uterus, unspecified; N93.8 Other specified abnormal uterine and vaginal bleeding; E55.9 Vitamin D deficiency, unspecified; Z98.51 Tubal ligation status
CPT/HCPCS: 36415; 36430; 80053; 82728; 83540; 83550; 83735; 84100; 85025; 85027; 85610; 85730; 86850; 86900; 86920; 93005; 99284; G0378; J1756; P9016